=== PATIENT | female | born 1980 | race Asian ===

== ENCOUNTER 2022-03-23 06:43 | Emergency (ER) | payer OTHER ==
[~2022-03-23] VITALS: Ht 172.7 cm; Wt 92.4 kg
[2022-03-23] MEDS ORDERED: ONDANSETRON HCL 4MG/2ML INJ IV STA (07:45)
[2022-03-23] MEDS ORDERED: SODIUM CHLORIDE 0.9% 1,000 ML IV ONE (07:45)
[2022-03-23] MEDS ORDERED: KETOROLAC 30MG/ML VIAL IV STA (07:45)
[2022-03-23 08:54] LABS: CLARITY URINE CLEAR (CLEAR); COLOR URINE YELLOW (YELLOW); KETONES URINE 1+ (NEGATIVE); LEUKOCYTE ESTERASE URINE NEGATIVE (NEGATIVE); NITRITE URINE NEGATIVE (NEGATIVE); OCCULT BLOOD URINE TRACE (NEGATIVE); PROTEIN URINE NEGATIVE (NEGATIVE); SPECIFIC GRAVITY URINE 1.006 (1.005-1.030); UROBILINOGEN URINE 0.2 E.U./dL (0.2-1.0)
[2022-03-23 08:55] LABS: HEMATOCRIT. 34.2 % (36.0-48.0); HEMOGLOBIN. 11.4 g/dL (12.0-16.0); MEAN CORPUSCULAR HEMOGLOBIN 27.6 pg (28.0-32.0); MEAN CORPUSCULAR VOLUME 82.3 fL (81.0-99.0); MEAN PLATELET VOLUME 8.8 fl (7.4-10.4); PLATELET 240 x1000/uL (130-400); RED BLOOD CELL COUNT 4.15 mill/uL (4.2-5.4)
[2022-03-23 09:13] LABS: CHLORIDE 99 mEq/L (98-107)
[2022-03-23 09:21] LABS: HCG SCREEN NEGATIVE
[2022-03-23 10:02] LABS: PLATELET ESTIMATE NORMAL
[2022-03-23] MEDS ORDERED: HYDR-4001 MT ×2 (11:53→12:33)
[2022-03-23] MEDS ORDERED: OMEP40CA20 MT ×2 (11:53→12:33)
[2022-03-23] MEDS ORDERED: ONDA4TAB50 MT ×2 (11:53→12:33)
[2022-03-23 12:05] VITALS: BP 122/82
[2022-03-23] MEDS ORDERED: POTASSIUM CHLORIDE 20MEQ TABLET SR PO ONE (12:15)
== END 2022-03-23 12:18 | disposition home or self-care (01) ==
LOC: ER 06:43
DX: R10.13 Epigastric pain (principal); C79.9 Secondary malignant neoplasm of unspecified site; Z79.899 Other long term (current) drug therapy
CPT/HCPCS: 36415; 74176; 80053; 81003; 83690; 84703; 85025; 96361; 96374; 96375; 99285; J1885; J2405; J7030